=== PATIENT | male | born 1980 | race Caucasian/White ===

== ENCOUNTER → 2017-11-07 | Emergency (ER) | payer MEDICAID ==
[~2017-11-07] VITALS: Ht 167.6 cm; Wt 86.2 kg
[~2017-11-07] MED LIST: CEFAZOLIN 1 G VIAL ONE; CEFAZOLIN 1 G in IV DEXTROSE 5% 50 ML IV ONE; MORPHINE SULFATE 4 MG/1 ML DISP.SYRIN IV ONE; MORPHINE SULFATE 4 MG/1 ML DISP.SYRIN ONE; ONDANSETRON 4 MG/2 ML VIAL ONE; ONDANSETRON IV *ER 4 MG/2 ML VIAL IV ONE; TDAP DIPH,PERTUSS,TET VAC/PF 0.5 ML DISP.SYRIN IM ONE
--- NOTE | 2017-11-07 15:00 | NUR ---
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 CHANGED THE WRAP INTO DAMPED STERILE 4X4 WITH STERILE NS, PLACED IT IN TIGHT STERILE CUP AND PLACED ON TOP OF ICE.
[2017-11-07 15:21] LABS: BASOPHILS # (AUTO) 0.1 K/uL (0.0-8.0); BASOPHILS % (AUTO) 0.7 % (0.0-2.0); EOSINOPHILS # (AUTO) 0.2 K/uL (0.0-0.7); EOSINOPHILS % (AUTO) 2.4 % (0.0-7.0); HEMATOCRIT 44.7 % (36.7-47.1); HEMOGLOBIN 15.3 g/dL (12.5-16.3); LYMPHOCYTES # (AUTO) 2.9 K/uL (20.0-40.0); LYMPHOCYTES % (AUTO) 30.1 % (20.5-51.5); MEAN CORPUSCULAR HEMOGLOBIN 30.3 uug (23.8-33.4); MEAN CORPUSCULAR HGB CONC 34 g/dL (32.5-36.3); MEAN CORPUSCULAR VOLUME 88.8 fL (73.0-96.2); MONOCYTES # (AUTO) 0.7 K/uL (2.0-10.0); MONOCYTES % (AUTO) 7.2 % (0.0-11.0); NEUTROPHILS # (AUTO) 5.7 K/uL (1.8-8.9); NEUTROPHILS % (AUTO) 59.6 % (38.5-71.5); PLATELET COUNT (AUTO) 259 K/uL (152-348); RED BLOOD CELL COUNT(AUTO) 5.04 MIL/uL (4.06-5.63); WHITE BLOOD COUNT (AUTO) 9.6 K/uL (3.6-10.2)
[2017-11-07 15:40] LABS: CREATININE 0.8 mg/dL (0.6-1.3); POTASSIUM 4.5 mmol/L (3.5-5.1)
--- NOTE | 2017-11-07 15:46 | NUR ---
FAXING TO [facility] THE REQUESTEF INFO.
--- NOTE | 2017-11-07 18:15 | NUR ---
[facility] HAND SURGEON CALLED AND ACCEPTED THE PT.
--- NOTE | 2017-11-07 18:46 | NUR ---
CALLED TO [facility] TRANSFER TO FOLLOW UP. TALKED TO EDWARD. TRANSFER CENTER WILL CALL BACK WITH TRANSFER INFO.
--- NOTE | 2017-11-07 19:02 | NUR ---
EDWARD FROM [facility] CALLED BACK, TRANSFER NOT READY YET PER ELENOR DUE TO HEAVY ER TRAUMA AT [facility].. WILL CALL BACK WHEN READY
--- NOTE | 2017-11-07 19:23 | NUR ---
HANDSS OFF REPORT GIVEN TO ANDRA HUERTA
--- NOTE | 2017-11-07 19:25 | NUR ---
EDWARD HARDEN FROM [facility], CONFIRMED THE PT IS GOING TO [facility] NESHA RODRIGUEZ AT [address] [facility],[id number], TO ER REPORT GIVEN TO [phone].
--- NOTE | 2017-11-07 19:38 | NUR ---
CALL PLACED TO [facility]--SPOKE W/ JOCELYNN. [facility]LS AMBULANCE TRANSFER ETA 60-90 MINS. TRIP #[id number]
--- NOTE | 2017-11-07 19:40 | NUR ---
PT IN BED. PT IS CALM AND COOPERATIVE. PT'S VISITOR AT BEDSIDE. NO SIGNS OF DISTRESS WITNESSED AT THIS TIME.
--- NOTE | 2017-11-07 20:53 | NUR ---
REPORT GIVEN TO [facility] RN, ROLY AND EMT SIVAKUMAR HILL W/ [facility] UN[id number]
--- NOTE | 2017-11-07 21:03 | NUR ---
PT IN ROUTE TO [facility] ED W/ EMT SIVAKUMAR HILL IN AMBULNZ UNIT 107
== END | disposition home or self-care (01) ==
LOC: ER 14:47
DX: S62.625B Displaced fracture of middle phalanx of left ring finger, initial encounter for open fracture (principal); W23.0XXA Caught, crushed, jammed, or pinched between moving objects, initial encounter; Y93.89 Activity, other specified; Y92.89 Other specified places as the place of occurrence of the external cause; Y99.8 Other external cause status
CPT/HCPCS: 36415; 73140; 85025; 85730; 86850; 86900; 86901; 90715; A4217; A4663; J0690; J2270; J2405; J3490